=== PATIENT | male | born 1955 | race African-American/Black ===

== ENCOUNTER 2017-02-07 02:11 | Observation (INO) ==
[2017-02-07] MEDS ORDERED: SODIUM CHLORIDE 0.9% 1,000 ML IV STA (02:23)
[2017-02-07] MEDS ORDERED: MIDAZOLAM 2 MG/2 ML VIAL IV STA (02:24)
[2017-02-07] MEDS ORDERED: MIDAZOLAM 2 MG/2 ML VIAL ONE (02:38)
[2017-02-07 02:40] LABS: Basophils # 0.1 10*3/uL (0.0-0.2); Basophils % 0.8 % (0.0-0.8); Eosinophils # 0.1 10*3/uL (0.0-0.87); Eosinophils % 1.4 % (0.00-10.9); Hematocrit 34.8 VOL% (42.0-52.0); Hemoglobin 11.1 GM/DL (14.0-18.0); Immature Granulocytes % 0.3 %; Immature Granulocytes Absolute 0.02 #; Lymphocytes # 2.1 10*3/uL (1.4-4.0); Lymphocytes % 32.7 % (21.2-54.2); Mean Corpuscular HGB Conc 31.9 GM/DL (32-36); Mean Corpuscular Hemoglobin 30 PG (27-34); Mean Corpuscular Volume 92.8 FL (87-102); Monocytes # 0.5 10*3/uL (0.11-0.8); Monocytes % 7.5 % (1.7-12.7); Neutrophils # 3.7 10*3/uL (1.4-7.4); Neutrophils % 57.3 % (38.7-73.9); Platelet Count 385 T/CUMM (130-400); Red Blood Count 3.75 MC/CUMM (3.8-5.5); Red Cell Distribution Width 12.7 % (9.3-17.3); White Blood Count 6.4 T/CUMM (4-12)
[2017-02-07 02:41] LABS: Ammonia 32 UMOL/L (11-32)
[2017-02-07 02:45] LABS: Alanine Aminotransferase 28 U/L (16-61); Albumin 3.5 G/DL (3.4-5.0); Alkaline Phosphatase 71 U/L (45-117); Aspartate Amino Transferase 32 U/L (0-37); Blood Urea Nitrogen 19 MG/DL (7-18); Calcium 9.2 MG/DL (8.5-10.1); Glucose 106 MG/DL (74-106); Osmolality,Calculated 289.7 MOS/KG (273-304); Potassium 4.5 MMOL/L (3.5-5.1); Sodium 145 MMOL/L (136-145); Total Protein 6.5 G/DL (6.4-8.3); Troponin I Only < 0.015 NG/ML (0.00-0.045)
[2017-02-07 02:46] LABS: Apearance,Urine CLEAR (Clear); Bilirubin,Urine Negative (Negative); Blood, Urine Small mg/dL (Negative); Glucose,Urine (UA) Negative (Negative); Hyaline Casts,Urine 7 /LPF (0-3); Ketones,Urine Negative (Negative); Mucus,Urine Occasional /LPF (Occasional); Nitrite,Urine Negative (Negative); Protein,Urine Negative; RBC,Urine 3 /HPF (0-4); Squamous Epithelial Cell,Urine Occasional /HPF (0-10); Urine Color Yellow (Yellow); Urine Specific Gravity 1.009 (1.001-1.035); Urine Urobilinogen < 2.0 EU/DL (0.2-1.0); WBC,Urine 4 /HPF (0-6)
[2017-02-07 03:09] LABS: Barbiturates Screen,Urine Negative (Negative); Benzodiazepines Screen,Urine Negative (Negative); Cannabinoid Screen,Urine Negative (Negative); Opiate Screen,Urine Negative (Negative); Phencyclidine Screen,Urine Negative (Negative)
[2017-02-07] MEDS: DEXTROSE 5% NACL 0.45% 1,000 ML IV SCH ×2 (08:32→17:15)
[2017-02-07] MEDS ORDERED: QUEtiapine 100 MG TABLET PO SCH (21:00)
[2017-02-07] MEDS ORDERED: BENZTROPINE 1 MG TABLET PO SCH (21:00)
[2017-02-07] MEDS ORDERED: METOPROLOL TARTRATE 100 MG TABLET PO SCH (21:00)
[2017-02-08] MEDS: DEXTROSE 5% NACL 0.45% 1,000 ML IV SCH (01:30)
[2017-02-08 05:46] VITALS: BP 128/62
== END 2017-02-08 08:00 ==
LOC: EDUNIT# → EDBD → N.ED 02:11 → N.EDINP 02:11 → N.4E 06:27
PROVIDERS: ADMIT Internal Medicine; ATTEND Internal Medicine